=== PATIENT | female | born 1980 | race Hispanic/Latino ===

== ENCOUNTER 2017-06-26 08:59 | Day surgery (SDC) | payer BC ==
[2017-06-26] MEDS ORDERED: Bupivacaine 0.5% Inj(30mL) ONE (09:20)
[2017-06-26] MEDS ORDERED: Lidocaine 1% Inj (20ml) ONE (09:20)
[2017-06-26 09:45] VITALS: TEMP 98.2
[2017-06-26 09:55] VITALS: BMI 31.8
[2017-06-26 11:12] VITALS: BP 127/73; PULSE 71; RESP 18
[2017-06-26 13:52] VITALS: O2SAT 100
--- NOTE | 2017-06-26 17:00 | PCM.SURG1 ---
Surgeon's Initial Post Op Note - Surgeon's Notes Surgeon: Dr. Amaro Civil Engineer'S Aide: Alejandro PGY1 Type of Anesthesia: Local Pre-Operative Diagnosis: Right neck mass Operative Findings: Right neck sebaceous cyst Post-Operative Diagnosis: same Operation Performed: Excision of Right neck sebaceous cyst Specimen/Specimens Removed: Right neck sebaceous cyst wall Estimated Blood Loss: EBL {In ML}: 3 Blood Products Given: N/A Drains Used: No Drains Post-Op Condition: Good Date of Surgery/Procedure: 06/26/17 Time of Surgery/Procedure: 10:00
--- NOTE | 2017-07-06 16:58 | OP ---
PROCEDURE DATE: 06/26/2017 PREOPERATIVE DIAGNOSIS: Right neck mass. POSTOPERATIVE DIAGNOSES: Right neck mass, probably sebaceous cyst. DESCRIPTION OF PROCEDURE: In the operating room, the patient was identified by name, name of procedure, laterality, my name, my aaron, her name, number, birthday and wrist band. The pre-marked lesion was identified. The area was prepped with chlorhexidine, dried by time and 10 x 20 drape was placed. A longitudinal incision was made, it turned out to be a sebaceous cyst. Entire ellipse was made. The entire lesion was removed. Hemostasis was achieved with cautery. The incision was closed with Vicryl by a subcuticular PDS, it was closed with Dermabond. The patient was taken to the recovery room in good condition after the sponge and needle counts were declared correct. Juan Alberto Amaro MD
== END 2017-06-26 10:25 | disposition home or self-care (01) ==
LOC: OPSURG 08:59
PROVIDERS: ATTEND Surgery
DX: L72.3 Sebaceous cyst (principal)